=== PATIENT | male | born 1955 | race Caucasian/White ===

== ENCOUNTER 2018-07-11 21:54 | Inpatient (IN) | payer MEDICAID ==
[~2018-07-11] VITALS: Ht 172.7 cm; Wt 103.0 kg
--- NOTE | 2018-07-11 22:00 | NUR ---
PT BIBRA FROM HOME AFTER WITNESSED SYNCOPE AT HOME. PT DENIES TRAUMA, SOB, CHEST PAIN, N/V/D. PER EMT, PT WAS DIAPHORETIC AND PALE ON SITE, GIVEN 500ML NS LEFT HAND IV 20G EN ROUTE. PT STATES HE IS STARTING TO FEEL BETTER. PT IS AAOX4. RESPIRATIONS EVEN AND UNLABORED. SKIN WARM AND INTACT. VITAL SIGNS STABLE. NO ACUTE DISTRESS NOTED AT THIS TIME. PLACED ON MONITOR, WILL CONTINUE TO MONITO
[2018-07-11] MEDS ORDERED: IV NS 0.9% 1,000 ML BAG IV ONE (22:30)
--- NOTE | 2018-07-11 22:50 | NUR ---
PT BROUGHT BY RADIOLOGY FOR CT
[2018-07-11 23:15] LABS: BASOPHILS % (AUTO) 0.4 % (0.0-2.0); HEMATOCRIT 41 % (39-51); HEMOGLOBIN 13.7 g/dL (13.5-17.5); LYMPHOCYTES # (AUTO) 2.2 /CMM (0.8-4.8); LYMPHOCYTES % (AUTO) 24.7 % (20.0-44.0); MEAN CORPUSCULAR HGB CONC 34 g/dl (31.0-36.0); MEAN CORPUSCULAR VOLUME 95 fL (80-96); MONOCYTES # (AUTO) 0.6 /CMM (0.1-1.30); MONOCYTES % (AUTO) 6.1 % (2.0-12.0); NEUTROPHILS % (AUTO) 66.8 % (43.0-81.0); PLATELET COUNT (AUTO) 208 /CMM (150-450); RED BLOOD CELL COUNT(AUTO) 4.32 MIL/uL (4.5-6.0)
[2018-07-11 23:25] LABS: CALCIUM, SERUM 9.1 mg/dL (8.5-10.1); CARBON DIOXIDE 26 mmol/L (21-32); CHLORIDE 107 mmol/L (98-107); GLUCOSE 134 mg/dL (74-106); POTASSIUM 4.3 mmol/L (3.5-5.1); SODIUM SERUM 141 mmol/L (136-145); UREA NITROGEN, BLOOD 23 mg/dL (7-18)
[2018-07-11 23:31] LABS: ALANINE AMINOTRANSFERASE 25 U/L (12-78); ALBUMIN 3.5 g/dL (3.4-5.0); ALKALINE PHOSPHATASE 82 U/L (46-116); ASPARTATE AMINOTRANSFERASE 16 U/L (15-37); BILIRUBIN,DIRECT 0.1 mg/dL (0.0-0.2); BILIRUBIN,TOTAL 0.3 mg/dL (0.2-1.0); TOTAL PROTEIN, SERUM 7.3 g/dL (6.4-8.2)
--- NOTE | 2018-07-11 23:41 | NUR ---
GAVE REPORT TO ROLANDO KENNEDY FOR LET[facility]
[2018-07-12] MEDS ORDERED: HYDROCODONE/APAP 5/325MG 1 EACH TABLET PO PRN (01:00)
[2018-07-12] MEDS ORDERED: ZOLPIDEM TARTRATE 5 MG TABLET PO PRN (01:00)
[2018-07-12] MEDS ORDERED: MAGNESIUM HYDROXIDE 30 ML UDC PO PRN (01:00)
[2018-07-12] MEDS ORDERED: HYDROMORPHONE INJ 2 MG/ML DISP.SYRIN IV PRN (01:00)
[2018-07-12] MEDS ORDERED: ACETAMINOPHEN 325 MG TABLET PO PRN (01:00)
[2018-07-12] MEDS ORDERED: Z GUARD REMEDY 2 OZ OINT TP PRN (01:00)
[2018-07-12] MEDS ORDERED: hydrALAZINE HCL IV 20 MG VIAL IV PRN (01:00)
[2018-07-12] MEDS ORDERED: ONDANSETRON HCL/PF 4 MG/2 ML VIAL IVP PRN (01:00)
[2018-07-12] MEDS ORDERED: MAG HYDROX/AL HYDROX/SIMETH 30 ML UDC PO PRN (01:00)
[2018-07-12 01:25] VITALS: BP 128/75
[2018-07-12 01:30] VITALS: BP 128/75
--- NOTE | 2018-07-12 01:30 | NUR ---
PLATE GRAINERSENIOR LANDSCAPE ARCHITECT NOTES ADMITTED FROM ER PER MICHAEL THIS 62 YO MALE,ALERT,ORIENTED X4,NO SOB,NO SKIN ISSUES.SALINE LOCK LEFT HAND INTACT AND PATENT.DENIES CHEST PAIN..CALL LIGHT IN REACH,NEEDS ANTICIPATED.
--- NOTE | 2018-07-12 01:31 | NUR ---
TRANSFERRED PT PER ACLS PROTOCOL
[2018-07-12] MEDS: IV NS 0.9% 1,000 ML IV PRN ×2 (01:38→17:06)
--- NOTE | 2018-07-12 01:38 | NUR ---
VAMP SEAMER NOTES STARTED ON NS AT 75ML/HR RATE,INFUSING VIA IV PUMP.
[2018-07-12] MEDS: ENOXAPARIN SODIUM 40 MG/0.4 ML DISP.SYRIN SQ SCH (01:41)
--- NOTE | 2018-07-12 01:41 | NUR ---
MILK HOUSE WORKER NOTES SR WITH 1ST DEGREE AV BLOCK AND BBB,RATE OF 72. STARTED ON LOVENOX 40MG.GIVEN SQ ON LEFT LOWER ABDOMEN.
[2018-07-12 04:00] VITALS: BP 138/75
--- NOTE | 2018-07-12 06:27 | NUR ---
INDUSTRIAL GAS FITTER HELPER NOTES FAIRLY RESTED,DENIES CHEST PAIN,IVF INFUSING.CALL LIGHT IN REACH,NEEDS ATTENDED.WILL ENDORSE TO DAY NURSE FOR [facility].
[2018-07-12] MEDS ORDERED: LOSA50TA39 PO (07:21)
[2018-07-12] MEDS ORDERED: ASPI-1152 PO (07:21)
[2018-07-12] MEDS ORDERED: ATOR10TA PO (07:21)
[2018-07-12] MEDS ORDERED: METO-358 PO (07:21)
[2018-07-12] MEDS ORDERED: CITA20TA16 PO (07:21)
[2018-07-12 07:32] LABS: BASOPHILS % (AUTO) 0.3 % (0.0-2.0); EOSINOPHILS % (AUTO) 0.9 % (0.0-6.0); HEMATOCRIT 40 % (39-51); HEMOGLOBIN 13.3 g/dL (13.5-17.5); LYMPHOCYTES # (AUTO) 1.5 /CMM (0.8-4.8); LYMPHOCYTES % (AUTO) 20.8 % (20.0-44.0); MEAN CORPUSCULAR HGB CONC 34 g/dl (31.0-36.0); MEAN CORPUSCULAR VOLUME 95 fL (80-96); MONOCYTES # (AUTO) 0.7 /CMM (0.1-1.30); MONOCYTES % (AUTO) 8.9 % (2.0-12.0); NEUTROPHILS # (AUTO) 5.1 /CMM (1.8-8.9); NEUTROPHILS % (AUTO) 69.1 % (43.0-81.0); PLATELET COUNT (AUTO) 198 /CMM (150-450); RED BLOOD CELL COUNT(AUTO) 4.17 MIL/uL (4.5-6.0); WHITE BLOOD COUNT (AUTO) 7.4 K/uL (4.3-11.0)
[2018-07-12 07:49] LABS: ALBUMIN 3.2 g/dL (3.4-5.0); BILIRUBIN,TOTAL 0.4 mg/dL (0.2-1.0); CALCIUM, SERUM 8.8 mg/dL (8.5-10.1); CREATININE 0.7 mg/dL (0.6-1.3); PHOSPHORUS 3.3 mg/dL (2.5-4.9); POTASSIUM 4.2 mmol/L (3.5-5.1); TOTAL PROTEIN, SERUM 6.8 g/dL (6.4-8.2)
[2018-07-12 08:00] VITALS: BP 148/75
[2018-07-12] MEDS: ASPIRIN EC 81 MG TABLET.DR PO SCH (08:42)
[2018-07-12] MEDS: CITALOPRAM HYDROBROMIDE 20 MG TABLET PO SCH (08:42)
[2018-07-12] MEDS: METOPROLOL SUCCINATE 50 MG TAB.SR.24H PO SCH (08:42)
[2018-07-12] MEDS: LOSARTAN POTASSIUM 50 MG TABLET PO SCH (08:42)
[2018-07-12] MEDS: PANTOPRAZOLE 40 MG TABLET.DR PO SCH (08:43)
[2018-07-12] MEDS ORDERED: ASPIRIN EC 81 MG TABLET.DR PO SCH (09:00)
[2018-07-12] MEDS ORDERED: ATORVASTATIN 10 MG TABLET PO SCH (18:00)
--- NOTE | 2018-07-12 18:16 | NUR ---
Met with patient at bedside, he is alert and pleasant. He lives at home with family. 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 Has no DME or homehealth reported. His pcp is Dr. Hollis Lee. His daughter Daniel [phone] will provide ride when discharge. Addendum: 07/12/18 at 1817 by ROBBIE FAUSTIN RN Amended: Links added.
--- NOTE | 2018-07-12 18:36 | NUR ---
URINALYSIS WAS COLLECTED PER MD ORDER. LAB WAS NOTIFIED SPECIMEN WAS READY FOR PICK-UP.
--- NOTE | 2018-07-12 18:37 | NUR ---
ORTHOSTATIC BP : 1 MINUTE DURATION BETWEEN POSITION LYING 152/83 PULSE 77 SITTING 159/91 PULSE 75 STANDING 159/91 PULSE 75
--- NOTE | 2018-07-12 19:25 | NUR ---
MS RN OPENING NOTE RECEIVED PATIENT RESTING IN BED, A & O X 4. NO ACUTE DISTRESS OR SOB NOTED, NO C/O DIZZINESS OR PAIN VERBALIZED. CONTINENT/BRP WITH STANDBY ASSIST. ABLE TO MAKE NEEDS KNOWN. IV ACCESS TO LEFT HAND, INTACT PATENT, INFUSING IVF ORDERED. COMFORTABLE IN BED AT THIS TIME. SAFETY MEASURES IN PLACE. CALL LIGHT WITHIN REACH. BED IN LOW LOCKED POSITION. WILL MONITOR CLOSELY FOR SAFETY & COMFORT.
--- NOTE | 2018-07-12 19:30 | NUR ---
RN CLOSING NOTES PT. IS IN BED A&OX4. BREATHING UNLABORED, AND EVENLY ON ROOM AIR. NO S/S OF ACUTE DISTRESS. IV FLUIDS RUNNING AT 75 ML/HR. PT. DENIES CHEST PAIN, WEAKNESS & DIZZINESS. PT. HAS A STEADY GAIT ON AMBULATION. BED IS IN LOWEST, AND LOCKED POSITION. 2 SIDE RAILS UP, AND INSTRUCTED PT. TO USE CALL LIGHT FOR ASSISTANCE. PER HOSPITALIST NO NEW DISCHARGE ORDERS GIVEN AT THIS TIME. URINALYSIS AND ORTHOSTATIC BP WAS ASSESSED. DISCUSSED WITH PT.'S DAUGHTER PT.'S PLAN OF CARE, AND POSSIBLE DISCHARGE PLANS FOR TOMORROW. WILL ENDORSE REPORT TO RN.
[2018-07-12 20:00] VITALS: BP 160/91
[2018-07-12 21:19] LABS: APPEARANCE,URINE CLEAR (CLEAR); BILIRUBIN,URINE NEGATIVE (NEGATIVE); BLOOD, URINE NEGATIVE Ery/uL (NEGATIVE); COLOR,URINE YELLOW (YELLOW); KETONES,URINE NEGATIVE (NEGATIVE); LEUKOCYTE ESTERASE ,URINE NEGATIVE (NEGATIVE); NITRITE, URINE NEGATIVE (NEGATIVE); PH,URINE 6.5 (5.0-8.0); PROTEIN,URINE NEGATIVE (NEGATIVE); UGLUCOSE NEGATIVE (NEGATIVE); UROBILINOGEN,URINE 0.2 EU/dL (0.2)
[2018-07-12 21:20] VITALS: BP 141/82
--- NOTE | 2018-07-12 23:45 | NUR ---
MS RN NOTE PATIENT'S DTR KAM LUNDBERG, WOULD LIKE TO TALK TO MD IN AM BEFORE THE PATIENT IS DC. ALSO WHEN MD ORDERS TO DC THE PT, DTR WANTS TO BE NOTIFIED SO SHE CAN MAKE ARRANGEMENTS TO PICK HER DAD UP. WILL ENDORSE TO AM RN TO F/U ON BOTH CONCERNS VERBALIZED BY PT'S DTR.
[2018-07-13] MEDS: ENOXAPARIN SODIUM 40 MG/0.4 ML DISP.SYRIN SQ SCH (01:42)
--- NOTE | 2018-07-13 06:48 | NUR ---
MS RN CLOSING NOTE PT SLEPT WELL AT NIGHT. A & O X 4. NO ACUTE DISTRESS OR SOB NOTED, NO C/O DIZZINESS OR PAIN VERBALIZED. CONTINENT/BRP WITH STANDBY ASSIST. IV ACCESS TO LEFT HAND, INTACT PATENT, INFUSING IVF ORDERED. COMFORTABLE IN BED AT THIS TIME. SAFETY MEASURES IN PLACE. CALL LIGHT WITHIN REACH. BED IN LOW LOCKED POSITION. WILL ENDORSE TO AM RN FOR CONTINUITY OF CARE.
--- NOTE | 2018-07-13 06:53 | NUR ---
MS RN NOTE ALL CONCERNS VERBALIZED BY PT'S DTR, WERE ENDORSED TO AM RN TO F/U.
[2018-07-13 07:42] VITALS: BP_SYST 155; BP_SYST 157; BP_SYST 158; BP_DIAS 81; BP_DIAS 86; BP_DIAS 91
--- NOTE | 2018-07-13 07:43 | NUR ---
MS RN NOTES PATIENT RECEIVED RESTING INSIDE ROOM. AWAKE, ALERT AND ORIENTED X 4, VERBALLY RESPONSIVE AND RESPONDS TO VERBAL AND TACTILE STIMULI. BREATHING EVEN AND UNLABORED. NO SOB OR ACUTE DISTRESS. DENIES ANY PAIN OR DISCOMFORT. PATIENT CALM AND RELAXED. IV INTACT AND PATENT. WILL CONTINUE TO MONITOR. BED LOCKED AND IN LOW POSITION. BILATERAL UPPER SIDE RAILS UP AND LOCKED. CALL LIGHT WITHIN EASY REACH
[2018-07-13] MEDS: CITALOPRAM HYDROBROMIDE 20 MG TABLET PO SCH (08:15)
[2018-07-13 08:16] VITALS: BP 155/91
[2018-07-13] MEDS: METOPROLOL SUCCINATE 50 MG TAB.SR.24H PO SCH (08:16)
[2018-07-13] MEDS: PANTOPRAZOLE 40 MG TABLET.DR PO SCH (08:16)
[2018-07-13] MEDS: LOSARTAN POTASSIUM 50 MG TABLET PO SCH (08:16)
[2018-07-13] MEDS: ASPIRIN EC 81 MG TABLET.DR PO SCH (08:16)
[2018-07-13 08:42] LABS: BASOPHILS % (AUTO) 0.5 % (0.0-2.0); EOSINOPHILS % (AUTO) 1.8 % (0.0-6.0); HEMATOCRIT 43 % (39-51); HEMOGLOBIN 14.5 g/dL (13.5-17.5); LYMPHOCYTES # (AUTO) 2.2 /CMM (0.8-4.8); LYMPHOCYTES % (AUTO) 32.4 % (20.0-44.0); MEAN CORPUSCULAR HGB CONC 34 g/dl (31.0-36.0); MEAN CORPUSCULAR VOLUME 94 fL (80-96); MONOCYTES # (AUTO) 0.6 /CMM (0.1-1.30); MONOCYTES % (AUTO) 8.7 % (2.0-12.0); NEUTROPHILS # (AUTO) 3.9 /CMM (1.8-8.9); NEUTROPHILS % (AUTO) 56.6 % (43.0-81.0); PLATELET COUNT (AUTO) 193 /CMM (150-450); RED BLOOD CELL COUNT(AUTO) 4.55 MIL/uL (4.5-6.0); WHITE BLOOD COUNT (AUTO) 6.9 K/uL (4.3-11.0)
[2018-07-13 08:46] LABS: ALBUMIN 3.4 g/dL (3.4-5.0); BILIRUBIN,TOTAL 0.6 mg/dL (0.2-1.0); CALCIUM, SERUM 8.9 mg/dL (8.5-10.1); CREATININE 0.8 mg/dL (0.6-1.3); MAGNESIUM 1.9 mg/dL (1.8-2.4); PHOSPHORUS 2.7 mg/dL (2.5-4.9); POTASSIUM 3.9 mmol/L (3.5-5.1); TOTAL PROTEIN, SERUM 7.2 g/dL (6.4-8.2)
--- NOTE | 2018-07-13 10:32 | NUR ---
MS RN NOTES PATIENT FOR DISCHARGE HOME. DISCHARGE INSTRUCTIONS AND EDUCATION GIVEN AND PATIENT VERBALIZED UNDERSTANDING. IV REMOVED WITH MINIMAL BLEEDING NOTED, PRESSURE DRESSING PLACED ON SITE. ALL BELONGINGS COMPLETE ON DISCHARGE, NO REPORT OF MISSING INVENTORY. PATIENT LEFT UNIT AT 1025 VIA WHEELCHAIR, ACCOMPANIED BY NURSING STAFF TO PARKING LOT. NO NEW SKIN BREAKDOWN NOTED. PATIENT BREATHING EVEN AND UNLABORED. DENIES ANY PAIN OR DISCOMFORT. PATIENT LEFT HOSPITAL PREMISES VIA PRIVATE CAR WITH SON, MD SKIP AWARE OF DISCHARGE
== END 2018-07-13 10:30 | disposition home or self-care (01) | DRG 48 ==
LOC: ER 22:00 → TELE 23:33 → MED 07-12 09:12
PROVIDERS: ADMIT Nurse Practitioner Acute Care; ATTEND Nurse Practitioner Acute Care
DX: G90.8 Other disorders of autonomic nervous system (principal); E44.1 Mild protein-calorie malnutrition; E86.0 Dehydration; I25.10 Atherosclerotic heart disease of native coronary artery without angina pectoris; Z95.5 Presence of coronary angioplasty implant and graft; E66.9 Obesity, unspecified; Z68.34 Body mass index [BMI] 34.0-34.9, adult; I10 Essential (primary) hypertension; Z82.49 Family history of ischemic heart disease and other diseases of the circulatory system; E78.5 Hyperlipidemia, unspecified; F32.9 Major depressive disorder, single episode, unspecified
CPT/HCPCS: 36415; 70450-TC; 71045-TC; 80048-TC; 80053-TC; 80061-TC; 80076-TC; 81000-TC; 82962-TC; 83735-TC; 84100-TC; 84484-TC; 85025-TC; 85730-TC; 87081-TC; 93307-TC; 93880-TC; A4606; G0378; G0480; J1650; J7030; Z7610